=== PATIENT | female | born 1970 | race Caucasian/White ===

== ENCOUNTER → 2017-04-04 | Outpatient (CLI) | payer BC ==
[~2017-04-04] MED LIST: CHOL100015 PO; LEVO112T2 PO
[2017-04-04 10:30] LABS: HEMATOCRIT 37.9 % (34.6-47.8); HEMOGLOBIN 12.8 g/dL (11.7-16.4); WHITE BLOOD COUNT 5.5 x10^3/uL (3.4-10)
== END ==
LOC: STAR 09:23
PROVIDERS: ATTEND Obstetrics & Gynecology Maternal & Fetal Medicine
DX: Z01.818 Encounter for other preprocedural examination (principal); D25.9 Leiomyoma of uterus, unspecified; N92.0 Excessive and frequent menstruation with regular cycle
CPT/HCPCS: 36415; 81001; 84703; 85025; 87086

== ENCOUNTER 2017-04-10 06:00 | Observation (INO) | payer BC ==
[~2017-04-10] VITALS: Ht 160 cm; Wt 59.3 kg
[2017-04-10] MEDS ORDERED: LACTATED RINGERS 1,000 ML IV SCH ×2 (06:24→09:40)
[2017-04-10 06:25] VITALS: BP 130/77
[2017-04-10] MEDS ORDERED: LIDOCAINE 1%, 2ML ONE (06:35)
[2017-04-10] MEDS ORDERED: NEOSPORIN OINT, 15GM ONE (06:47)
[2017-04-10] MEDS ORDERED: BUPIVACAINE/PF-EPI 0.25% 1:200K ONE (06:47)
[2017-04-10] MEDS ORDERED: LIDOCAINE 1%, 2ML SQ PRN (07:00)
[2017-04-10 07:12] LABS: HCG UR OBC PASS
[2017-04-10] MEDS ORDERED: HYDROmorphone 1 MG/ML, 1ML ONE (07:32)
[2017-04-10] MEDS ORDERED: CEFAZOLIN 1,000 MG ONE (07:32)
[2017-04-10] MEDS ORDERED: ONDANSETRON 2MG/ML, 2ML ONE (07:32)
[2017-04-10] MEDS ORDERED: FENTANYL PF 100 MCG/2ML ONE ×2 (07:32)
[2017-04-10] MEDS ORDERED: SUCCINYLCHOLINE 20 MG/ML, 10ML ONE (07:32)
[2017-04-10] MEDS ORDERED: PROPOFOL 10 MG/ML, 20ML ONE (07:32)
[2017-04-10] MEDS ORDERED: KETOROLAC 30 MG/1 ML ONE (07:32)
[2017-04-10] MEDS ORDERED: METOCLOPRAMIDE 5 MG/ML, 2ML ONE (07:32)
[2017-04-10] MEDS ORDERED: DEXAMETHASONE 4 MG/ML, 1ML ONE (07:32)
[2017-04-10] MEDS ORDERED: ROCURONIUM 10 MG/ML ONE (07:32)
[2017-04-10] MEDS ORDERED: ONDANSETRON 2MG/ML, 2ML IVPush PRN ×2 (08:30→10:00)
[2017-04-10] MEDS ORDERED: ACETAMINOPHEN 325 MG TABLET PO PRN (08:30)
[2017-04-10] MEDS ORDERED: DIAZEPAM 5 MG/ML, 2ML IVPush PRN (08:30)
[2017-04-10] MEDS ORDERED: FENTANYL PF 100 MCG/2ML IV PRN (08:30)
[2017-04-10] MEDS ORDERED: HYDROmorphone 1 MG/ML, 1ML IV PRN (08:30)
[2017-04-10] MEDS ORDERED: MEPERIDINE/PF 25MG/0.5ML IVPush PRN (08:30)
[2017-04-10] MEDS ORDERED: MIDAZOLAM 1 MG/ML, 2ML IV PRN (08:30)
[2017-04-10] MEDS ORDERED: hydrALAzine 20 MG/ML, 1ML IV PRN (08:30)
[2017-04-10] MEDS ORDERED: LABETALOL 5MG/ML, 20ML IV PRN (08:30)
[2017-04-10] MEDS ORDERED: PROMETHAZINE 25 MG/ML, 1ML IV PRN (08:30)
[2017-04-10] MEDS ORDERED: OXYcodone 5 MG/5 ML ORAL.SOL UDC PO PRN (08:30)
[2017-04-10] MEDS ORDERED: FLUORESCEIN SODIUM 500 MG/5 ML ONE (08:47)
[2017-04-10] MEDS ORDERED: ACETAMINOPHEN 650 MG/20.3 ML UDC ONE (09:58)
[2017-04-10] MEDS ORDERED: OXYcodone 5 MG/5 ML ORAL.SOL UDC ONE (09:58)
[2017-04-10] MEDS ORDERED: KETOROLAC 30 MG/1 ML IVPush SCH (10:00)
[2017-04-10] MEDS ORDERED: OXYcodone/APAP 5/325MG TABLET PO PRN (10:00)
[2017-04-10] MEDS ORDERED: morphine SULFATE 10 MG/ML, 1ML IVPush PRN (10:00)
[2017-04-10 15:17] LABS: HEMATOCRIT 34.7 % (34.6-47.8); HEMOGLOBIN 11.8 g/dL (11.7-16.4)
[2017-04-10] MEDS ORDERED: SIMETHICONE 80 MG CHEW TAB PO SCH (16:00)
== END 2017-04-10 18:55 | disposition home or self-care (01) ==
LOC: OUT 06:00 → ORIP 09:40
PROVIDERS: ADMIT Obstetrics & Gynecology Maternal & Fetal Medicine; ATTEND Obstetrics & Gynecology Maternal & Fetal Medicine
DX: D25.9 Leiomyoma of uterus, unspecified (principal); N92.0 Excessive and frequent menstruation with regular cycle; E03.9 Hypothyroidism, unspecified; Z82.3 Family history of stroke; Z85.850 Personal history of malignant neoplasm of thyroid; Z80.7 Family history of other malignant neoplasms of lymphoid, hematopoietic and related tissues
CPT/HCPCS: 36415; 58554; 81025; 85014; 85018; 88307; G0378; J0330; J0690; J1100; J1170; J1885; J2405; J2704; J2765; J3010; J3490; J7120

== ENCOUNTER → 2017-05-14 | Outpatient (CLI) | payer BC | END | disposition home or self-care (01) | LOC: CFH 13:03 | PROVIDERS: ATTEND Obstetrics & Gynecology Maternal & Fetal Medicine | DX: Z12.31 Encounter for screening mammogram for malignant neoplasm of breast (principal) | CPT/HCPCS: 77063; G0202 ==